=== PATIENT | male | born 1970 | race Caucasian/White ===

== ENCOUNTER 2016-11-12 18:32 | Emergency (ER) | payer SELFPAY ==
[~2016-11-12] VITALS: Ht 152.4 cm; Wt 73.2 kg
[2016-11-12 18:42] VITALS: BP 150/104
[2016-11-12 19:02] LABS: HEMATOCRIT 42.2 % (38.0-50.0); MCH 33.6 PG (29.0-34.0); MCHC 34.6 G/DL (30.0-36.0); MCV 97.2 FL (86-99); MEAN PLAT.VOLUME 8.4 uM^3 (9.0-12.4); PLATELET COUNT 162 K/uL (156-360); RBC DIS.WIDTH-CV 13.2 % (11.8-14.6); RBC DIS.WIDTH-SD 45.5 % (39-53); RED BLOOD COUNT 4.34 M/uL (4.00-5.50); WHITE BLOOD COUNT 9.2 K/uL (4.1-10.2)
[2016-11-12 19:24] LABS: CHLORIDE 111 mEq/L (99-109); POTASSIUM 4.1 mEq/L (3.7-5.4); SODIUM 144 mEq/L (136-147)
[2016-11-12 19:26] LABS: GLUCOSE 95 mg/dL (70-99); TROP-I INTERPRETATION NEGATIVE; TROPONIN-I < 0.01 ng/mL (0.0-0.30)
[2016-11-12 19:27] LABS: ANION GAP 11 MEQ/L (2-14)
[2016-11-12 19:29] LABS: SERUM ETHYL ALCOHOL 379 mg/dL
[2016-11-12 19:31] LABS: UREA NITROGEN (BUN) 10 mg/dL (9-23)
[2016-11-12 19:36] LABS: GFR ESTIMATE (CALCULATED) > 59 mL/min/
[2016-11-12 19:36] LABS: ADD MIUA? NO; BILIRUBIN NEGATIVE; BLOOD NEGATIVE; COLOR STRAW ((YELLOW)); GLUCOSE (STRIP) NEGATIVE; KETONES NEGATIVE; LEUKOCYTES NEGATIVE; NITRITE NEGATIVE; PROTEIN (STRIP) NEGATIVE; SPECIFIC GRAVITY 1.004 (1.000-1.030); UROBILINOGEN 0.2 MG/DL (0.2-1.0)
== END 2016-11-12 20:02 | disposition left against medical advice (07) ==
LOC: EME 18:32
DX: F10.10 Alcohol abuse, uncomplicated (principal); Z53.21 Procedure and treatment not carried out due to patient leaving prior to being seen by health care provider
CPT/HCPCS: 71020; 80048; 81003; 84484; 85027; 93005; G0480

== ENCOUNTER 2017-12-12 16:56 | Emergency (ER) | payer SELFPAY ==
[~2017-12-12] VITALS: Ht 152.4 cm; Wt 97.9 kg
[2017-12-12 17:30] LABS: HEMATOCRIT 25.4 % (38.0-50.0); HEMOGLOBIN 9.2 G/DL (12.5-16.6); MCH 34.5 PG (29.0-34.0); MCHC 36.2 G/DL (30.0-36.0); MCV 95.1 FL (86-99); PLATELET COUNT 140 K/uL (156-360); RBC DIS.WIDTH-CV 12.8 % (11.8-14.6); RBC DIS.WIDTH-SD 43.8 % (39-53); RED BLOOD COUNT 2.67 M/uL (4.00-5.50); WHITE BLOOD COUNT 8.8 K/uL (4.1-10.2)
[2017-12-12 17:45] LABS: ALBUMIN 3.2 g/dL (3.2-4.8)
[2017-12-12 17:46] LABS: CHLORIDE 106 mEq/L (99-109); POTASSIUM 4.2 mEq/L (3.7-5.4); SODIUM 138 mEq/L (136-147)
[2017-12-12 17:48] LABS: GLUCOSE 123 mg/dL (70-99); TOTAL PROTEIN 5.8 g/dL (6.4-8.3)
[2017-12-12 17:50] LABS: TOTAL BILIRUBIN 0.8 mg/dL (0.0-1.0)
[2017-12-12 17:51] LABS: ALKALINE PHOSPHATASE 77 IU/L (3-129)
[2017-12-12 17:52] LABS: CREATININE 0.8 mg/dL (0.6-1.3); GFR ESTIMATE (CALCULATED) > 59 mL/min/ (58.99-99999)
[2017-12-12 17:53] LABS: AST (GOT) 44 IU/L (2-34); UREA NITROGEN (BUN) 39 mg/dL (9-23)
[2017-12-12 17:55] LABS: ALT (GPT) 37 IU/L (3-49); LIPASE 13 U/L (1.0-51.0)
[2017-12-12 20:24] VITALS: BP 132/85
== END 2017-12-12 20:35 | disposition home or self-care (01) ==
LOC: EME 16:56
PROVIDERS: Nurse Practitioner Family
DX: K85.90 Acute pancreatitis without necrosis or infection, unspecified (principal); K92.2 Gastrointestinal hemorrhage, unspecified; I45.10 Unspecified right bundle-branch block; R00.0 Tachycardia, unspecified; R94.31 Abnormal electrocardiogram [ECG] [EKG]; K74.60 Unspecified cirrhosis of liver; J44.9 Chronic obstructive pulmonary disease, unspecified; I10 Essential (primary) hypertension; F17.200 Nicotine dependence, unspecified, uncomplicated; Z88.8 Allergy status to other drugs, medicaments and biological substances
CPT/HCPCS: 74177; 80053; 83690; 85027; 86850; 86900; 86901; 87040; 93005; 99281; 99285; C9113; J0696; J2354; J7040; J7050; J7644

== ENCOUNTER 2017-12-16 14:46 | Inpatient (IN) | payer OTHER ==
[~2017-12-16] VITALS: Ht 154.9 cm; Wt 72.7 kg
[2017-12-16 15:40] LABS: HEMATOCRIT 21.4 % (38.0-50.0); HEMOGLOBIN 7.5 G/DL (12.5-16.6); PLATELET COUNT 160 K/uL (156-360); RBC DIS.WIDTH-SD 48.5 % (39-53); RED BLOOD COUNT 2.14 M/uL (4.00-5.50); WHITE BLOOD COUNT 5.1 K/uL (4.1-10.2)
[2017-12-16 15:48] LABS: CHLORIDE 108 mEq/L (99-109); POTASSIUM 3.7 mEq/L (3.7-5.4); SODIUM 141 mEq/L (136-147)
[2017-12-16 15:49] LABS: GLUCOSE 112 mg/dL (70-99)
[2017-12-16 15:53] LABS: CREATININE 0.8 mg/dL (0.6-1.3); GFR ESTIMATE (CALCULATED) > 59 mL/min/ (58.99-99999)
[2017-12-16 16:01] LABS: UREA NITROGEN (BUN) 13 mg/dL (9-23)
[2017-12-16 17:21] LABS: ALBUMIN 3.1 g/dL (3.2-4.8)
[2017-12-16 17:24] LABS: TOTAL PROTEIN 5.6 g/dL (6.4-8.3)
[2017-12-16 17:29] LABS: AST (GOT) 38 IU/L (2-34)
[2017-12-16 17:30] LABS: ALT (GPT) 35 IU/L (3-49); LIPASE 51 U/L (1.0-51.0)
[2017-12-16 17:32] LABS: ALKALINE PHOSPHATASE 137 IU/L (3-129); TOTAL BILIRUBIN 0.4 mg/dL (0.0-1.0)
[2017-12-16 20:00] VITALS: BP 129/71
[2017-12-16 21:36] LABS: INTER. NORMALIZED RATIO 1.1
[2017-12-16 23:05] VITALS: BP 121/68
[2017-12-16 23:11] VITALS: BP 121/68
[2017-12-16 23:22] VITALS: BP 130/60
[2017-12-16 23:42] VITALS: BP 116/65
[2017-12-17] VITALS (9 sets, daily range): BP systolic 113–140; BP diastolic 69–94
[2017-12-17 03:18] LABS: HEMATOCRIT 22.1 % (38.0-50.0); HEMOGLOBIN 7.9 G/DL (12.5-16.6); MCV 97.8 FL (86-99)
[2017-12-17 06:16] LABS: HEMATOCRIT 22.9 % (38.0-50.0); HEMOGLOBIN 7.7 G/DL (12.5-16.6); MCH 33.2 PG (29.0-34.0); MCHC 33.6 G/DL (30.0-36.0); MCV 98.7 FL (86-99); PLATELET COUNT 146 K/uL (156-360); RBC DIS.WIDTH-CV 15.9 % (11.8-14.6); RBC DIS.WIDTH-SD 51.4 % (39-53); RED BLOOD COUNT 2.32 M/uL (4.00-5.50); WHITE BLOOD COUNT 4.7 K/uL (4.1-10.2)
[2017-12-17 07:04] LABS: CHLORIDE 111 MEQ/L (99-109); CREATININE 0.8 MG/DL (0.6-1.3); GFR ESTIMATE (CALCULATED) > 59 mL/min/ (58.99-99999); GLUCOSE 98 mg/dL (70-99); POTASSIUM 4.2 MEQ/L (3.7-5.4); SODIUM 142 MEQ/L (136-147); UREA NITROGEN (BUN) 13 mg/dL (9-23)
[2017-12-17 19:30] LABS: HEMOGLOBIN 9.1 G/DL (12.5-16.6); MCV 97.8 FL (86-99)
[2017-12-18 00:13] VITALS: BP 121/76
[2017-12-18 04:06] VITALS: BP 129/84
[2017-12-18 06:11] LABS: HEMATOCRIT 25.8 % (38.0-50.0); HEMOGLOBIN 8.9 G/DL (12.5-16.6); MCH 33.2 PG (29.0-34.0); MCHC 34.5 G/DL (30.0-36.0); MCV 96.3 FL (86-99); PLATELET COUNT 137 K/uL (156-360); RBC DIS.WIDTH-SD 52.3 % (39-53); RED BLOOD COUNT 2.68 M/uL (4.00-5.50); WHITE BLOOD COUNT 5.1 K/uL (4.1-10.2)
[2017-12-18 06:37] LABS: ALBUMIN 2.6 G/DL (3.2-4.8); ALKALINE PHOSPHATASE 65 IU/L (3-129); ALT (GPT) 23 IU/L (3-49); AST (GOT) 28 IU/L (2-34); CHLORIDE 110 MEQ/L (99-109); CREATININE 0.9 MG/DL (0.6-1.3); DIRECT BILIRUBIN 0.2 mg/dL (0.0-0.3); GFR ESTIMATE (CALCULATED) > 59 mL/min/ (58.99-99999); GLUCOSE 94 mg/dL (70-99); SODIUM 141 MEQ/L (136-147); TOTAL BILIRUBIN 0.5 MG/DL (0.0-1.0); UREA NITROGEN (BUN) 10 mg/dL (9-23)
[2017-12-18 08:12] VITALS: BP 143/79
[2017-12-18] MEDS ORDERED: PROTONIX40 MG PO (08:31)
== END 2017-12-18 10:51 | disposition home or self-care (01) | DRG 811 ==
LOC: EME 14:46 → 5SOUTH 18:01 → EDOF 18:01 → ENRESERV 18:02 → 5SOUTH 19:12 → ENPENDDIS 12-18 09:12 → 5SOUTH 12-18 10:51
PROVIDERS: Family Medicine; Hospitalist; Internal Medicine Gastroenterology
PROC: 30233N1 Transfusion of Nonautologous Red Blood Cells into Peripheral Vein, Percutaneous Approach (ICD-10-PCS; principal; 2017-12-16)
PROC: 0DB68ZX Excision of Stomach, Via Natural or Artificial Opening Endoscopic, Diagnostic (ICD-10-PCS; 2017-12-17)
DX: D62 Acute posthemorrhagic anemia (principal); K25.0 Acute gastric ulcer with hemorrhage; K25.4 Chronic or unspecified gastric ulcer with hemorrhage; K26.9 Duodenal ulcer, unspecified as acute or chronic, without hemorrhage or perforation; J44.1 Chronic obstructive pulmonary disease with (acute) exacerbation; K70.30 Alcoholic cirrhosis of liver without ascites; F10.21 Alcohol dependence, in remission; F12.90 Cannabis use, unspecified, uncomplicated; F17.210 Nicotine dependence, cigarettes, uncomplicated; Z87.11 Personal history of peptic ulcer disease; Z80.0 Family history of malignant neoplasm of digestive organs; Z82.5 Family history of asthma and other chronic lower respiratory diseases
CPT/HCPCS: 80048; 80053; 80076; 82105 90; 82948; 83690; 85014; 85018; 85027; 85610; 86850; 86900; 86901; 86920; 88305; 88342 TC; 94640; 94640 76; 99202; 99281; 99285; C9113; J0330; J0696; J1170; J2060; J2354; J2405; J3010; J7030; P9016